=== PATIENT | female | born 1995 | race Caucasian/White ===

== ENCOUNTER 2021-02-07 15:48 | Emergency (ER) | payer OTHER ==
[~2021-02-07] VITALS: Ht 160 cm; Wt 54.4 kg
[2021-02-07 16:04] VITALS: BP_SYST 128
[2021-02-07] MEDS ORDERED: LIDOCAINE 1% 10 MG/ML, 20 ML MDV INJ ONE (17:15)
[2021-02-07] MEDS ORDERED: BACITRACIN 1 GM OINT TP ONE ×2 (17:41→17:45)
[2021-02-07] MEDS ORDERED: DIPH-TET-PERTUS Vaccine 0.5 ML VIAL (ADACEL) I.M. ONE (17:45)
[2021-02-07 17:58] VITALS: BP_SYST 128
== END 2021-02-07 17:58 | disposition home or self-care (01) ==
LOC: SED 15:48
DX: S61.211A Laceration without foreign body of left index finger without damage to nail, initial encounter (principal); W45.8XXA Other foreign body or object entering through skin, initial encounter; Y93.89 Activity, other specified; Y92.89 Other specified places as the place of occurrence of the external cause; Y99.0 Civilian activity done for income or pay
CPT/HCPCS: 12001; 90471; 90715; 99283; J2001

== ENCOUNTER 2021-02-18 17:40 | Emergency (ER) | payer OTHER ==
[~2021-02-18] VITALS: Ht 160 cm; Wt 54.4 kg
--- NOTE | 2021-02-18 17:45 | NUR ---
Pt dawson by self, A&OX4, pt presents to ER for sutures removal from L index finger, skin pink and warm, cap refill <3, VSS.
[2021-02-18 17:51] VITALS: BP_SYST 140
[2021-02-18] MEDS ORDERED: BACITRACIN 1 GM OINT TP ONE ×2 (18:39→18:45)
--- NOTE | 2021-02-18 18:39 | NUR ---
ER Dr. Nguyen at bedside examining patient.
--- NOTE | 2021-02-18 18:40 | NUR ---
4 sutures removed. Patient tolerated well
[2021-02-18 18:43] VITALS: BP_SYST 140
--- NOTE | 2021-02-18 18:43 | NUR ---
Patient given written and verbal discharge instructions and verbalizes understanding. ER MD discussed with patient the results and treatment provided. Patient in stable condition. ID arm band removed. No Rx given. Patient educated on pain management and to follow up with PMD. Pain Scale 0/10 Opportunity for questions provided and answered.
== END 2021-02-18 18:43 | disposition home or self-care (01) ==
LOC: SED 17:40
DX: S61.211D Laceration without foreign body of left index finger without damage to nail, subsequent encounter (principal); Z48.02 Encounter for removal of sutures; W26.0XXD Contact with knife, subsequent encounter
CPT/HCPCS: 99282